=== PATIENT | male | born 1950 | race Caucasian/White ===

== ENCOUNTER 2022-04-30 09:55 | Emergency (ER) | payer MEDICARE, BC ==
[2022-04-30 11:21] LABS: #Eosinphils 0.1 10x3/uL (0.0-0.5); #Monocytes 0.7 10x3/uL (0.0-1.1); #Neutrophils 5.2 10x3/uL (1.5-8.4); %Basophils 0.6 % (0.0-2.0); %Eosinophils 1.1 % (0.0-6.0); %Lymphocytes 15.6 % (18.0-47.0); %Monocytes 9.1 % (0.0-10.0); %Neutrophils 73.3 % (40.0-75.0); Hemoglobin 14.4 g/dL (13.5-17.5); Mean Corpuscular HGB CONC 32.7 g/dL (32.0-36.0); Mean Corpuscular Hemoglobin 30.1 pg (27.0-33.0); Mean Corpuscular Volume 92.1 fl (81.2-95.1); Mean Platelet Volume 10.1 fl (7.4-10.4); Platelet Count 191 10x3/uL (150-450); RBC Distribution Width 13.3 % (11.5-14.5); Red Blood Cell (RBC) Count 4.79 10x6/uL (4.32-5.72); White Blood Cell (WBC) Count 7.1 10x3/uL (3.5-10.5)
[2022-04-30 11:35] LABS: ALT (SGPT) 21 U/L (8-55); AST (SGOT) 22 U/L (5-34); Albumin 4.3 g/dL (3.4-4.8); Alkaline Phosphatase 70 U/L (40-110); Anion Gap 14 mmol/L (10-20); BUN (Urea Nitrogen) 14 mg/dL (8.4-25.7); Bilirubin, Total 0.6 mg/dL (0.2-1.2); CK (CPK) 105 U/L (30-200); Calc. Creatinine Clearance 0 mL/min (70-130); Calcium 9.6 mg/dL (7.8-10.44); Carbon Dioxide 24 mmol/L (23-31); Chloride 107 mmol/L (98-107); Estimated GFR 90; Globulin 2.4 g/dL (2.4-3.5); Glucose 104 mg/dL (83-110); Potassium 4.9 mmol/L (3.5-5.1); Protein, Total 6.7 g/dL (5.8-8.1); Sodium 140 mmol/L (136-145)
== END 2022-04-30 11:56 | disposition home or self-care (01) ==
LOC: CSHERS 09:55
DX: I10 Essential (primary) hypertension (principal)
CPT/HCPCS: 71045; 80053; 82550; 84484; 85025; 86140; 93005

== ENCOUNTER 2023-09-09 08:34 | Outpatient (CLI) | payer MEDICARE, BC | END 2023-09-09 08:35 | disposition home or self-care (01) | LOC: CSHLAB 08:34 | PROVIDERS: ATTEND Family Medicine | DX: R10.13 Epigastric pain (principal); K83.8 Other specified diseases of biliary tract | CPT/HCPCS: 74181; 76377 ==

== ENCOUNTER 2023-12-03 09:19 | Outpatient (CLI) | payer MEDICARE, BC | END 2023-12-03 09:20 | disposition home or self-care (01) | LOC: CSHWCC 09:19 | PROVIDERS: ATTEND Nurse Practitioner Family | DX: I87.313 Chronic venous hypertension (idiopathic) with ulcer of bilateral lower extremity (principal); L97.512 Non-pressure chronic ulcer of other part of right foot with fat layer exposed; L97.522 Non-pressure chronic ulcer of other part of left foot with fat layer exposed; I25.10 Atherosclerotic heart disease of native coronary artery without angina pectoris | CPT/HCPCS: 11042; 11045 ==

== ENCOUNTER 2023-12-17 09:22 | Outpatient (CLI) | payer MEDICARE, BC | END 2023-12-17 09:23 | disposition home or self-care (01) | LOC: CSHWCC 09:22 | PROVIDERS: ATTEND Nurse Practitioner Family | DX: T81.31XD Disruption of external operation (surgical) wound, not elsewhere classified, subsequent encounter (principal); I25.10 Atherosclerotic heart disease of native coronary artery without angina pectoris | CPT/HCPCS: 11042; 99212; G0463 ==

== ENCOUNTER 2023-12-24 08:55 | Outpatient (CLI) | payer MEDICARE, BC | END 2023-12-24 08:56 | disposition home or self-care (01) | LOC: CSHWCC 08:55 | PROVIDERS: ATTEND Nurse Practitioner Family | DX: T81.31XD Disruption of external operation (surgical) wound, not elsewhere classified, subsequent encounter (principal); I25.10 Atherosclerotic heart disease of native coronary artery without angina pectoris | CPT/HCPCS: 11042; G0463; 99212 ==

== ENCOUNTER 2023-12-31 08:53 | Outpatient (CLI) | payer MEDICARE, BC | END 2023-12-31 08:54 | disposition home or self-care (01) | LOC: CSHWCC 08:53 | PROVIDERS: ATTEND Nurse Practitioner Family | DX: T81.31XD Disruption of external operation (surgical) wound, not elsewhere classified, subsequent encounter (principal); I25.10 Atherosclerotic heart disease of native coronary artery without angina pectoris | CPT/HCPCS: 11042; G0463; 99212 ==

== ENCOUNTER 2024-01-07 08:00 | Outpatient (CLI) | payer MEDICARE, BC | END 2024-01-07 08:01 | disposition home or self-care (01) | LOC: CSHWCC 08:00 | PROVIDERS: ATTEND Nurse Practitioner Family | DX: T81.31XD Disruption of external operation (surgical) wound, not elsewhere classified, subsequent encounter (principal); I25.10 Atherosclerotic heart disease of native coronary artery without angina pectoris | CPT/HCPCS: 99212; G0463 ==

== ENCOUNTER 2024-01-21 09:51 | Outpatient (CLI) | payer MEDICARE, BC | END 2024-01-21 09:52 | disposition home or self-care (01) | LOC: CSHWCC 09:51 | PROVIDERS: ATTEND Nurse Practitioner Family | DX: T81.31XD Disruption of external operation (surgical) wound, not elsewhere classified, subsequent encounter (principal); I25.10 Atherosclerotic heart disease of native coronary artery without angina pectoris | CPT/HCPCS: 99212; G0463 ==

== ENCOUNTER 2024-04-08 08:33 | Outpatient (CLI) | payer MEDICARE, BC ==
[2024-04-08] MEDS ORDERED: Magnevist 469MG/ML 20 ML VIAL ONE (11:33)
== END 2024-04-08 08:34 | disposition home or self-care (01) ==
LOC: CSHMRI 08:33
PROVIDERS: ATTEND Internal Medicine Gastroenterology
DX: D13.5 Benign neoplasm of extrahepatic bile ducts (principal); K83.8 Other specified diseases of biliary tract; Z86.0100 Personal history of colon polyps, unspecified; Z98.890 Other specified postprocedural states
CPT/HCPCS: 74183; 76376

== ENCOUNTER 2024-09-14 03:58 | Inpatient (IN) | payer MEDICARE, BC ==
[2024-09-14 04:46] LABS: #Basophils 0.04 10x3/uL (0.0-0.2); #Eosinophils 0.09 10x3/uL (0.0-0.5); #Monocytes 0.78 10x3/uL (0.0-1.1); #Neutrophils 8.11 10x3/uL (1.5-8.4); %Basophils 0.4 % (0.0-2.0); %Eosinophils 0.9 % (0.0-6.0); %Lymphocytes 10.9 % (18.0-47.0); %Monocytes 7.7 % (0.0-10.0); %Neutrophils 79.7 % (40.0-75.0); Hematocrit 27.2 % (38.8-50.0); Hemoglobin 8.6 g/dL (13.5-17.5); Mean Corpuscular Hemoglobin 27.9 pg (27.0-33.0); Mean Corpuscular Volume 88.3 fL (81.2-95.1); Platelet Count 171 10x3/uL (150-450); Red Blood Cell (RBC) Count 3.08 10x6/uL (4.32-5.72); White Blood Cell (WBC) Count 10.17 10x3/uL (3.5-10.5)
[2024-09-14 05:05] LABS: ALT (SGPT) 24 U/L (Less than 45); AST (SGOT) 25 U/L (11-34); Albumin 3.5 g/dL (3.1-4.5); Alkaline Phosphatase 89 U/L (40-110); Anion Gap 13 mmol/L (10-20); BUN (Urea Nitrogen) 47 mg/dL (8.4-25.7); Bilirubin, Total 0.4 mg/dL (0.3-1.2); Calc. Creatinine Clearance 0 mL/min (70-130); Calcium 8.3 mg/dL (7.8-10.44); Carbon Dioxide 20 mmol/L (23-31); Chloride 110 mmol/L (98-107); Globulin 2.3 g/dL (2.4-3.5); Glucose 148 mg/dL (83-110); Potassium 4.4 mmol/L (3.5-5.1); Sodium 139 mmol/L (136-145)
[2024-09-14 05:12] LABS: Troponin I Less than 0.010 ng/mL (< 0.028)
[2024-09-14 05:18] LABS: Glucose, Urine (Dipstick) >=1000 mg/dL (Negative); Leukocyte Negative (Negative); Protein, Urine (Dipstick) 15 mg/dl (Neg-Trace); Specific Gravity, Urine 1.015 (1.005-1.030)
[2024-09-14 05:45] LABS: CAUTI Indications for Culture Alt mental st,lethar; RBC/HPF 0-3 HPF (0-3); WBC/HPF 0-3 HPF (0-3)
[2024-09-14 05:46] LABS: Bacteria/HPF None Seen HPF (None Seen)
[2024-09-14 05:47] LABS: Urine Culture Reflex No No
[2024-09-14] MEDS ORDERED: Pantoprazole 40 MG VIAL ONE (06:47)
[2024-09-14] MEDS ORDERED: Ondansetron PF 4 MG/2 ML Vial IVP PRN (08:27)
[2024-09-14] MEDS ORDERED: Acetaminophen 325 MG TAB PO PRN (08:27)
[2024-09-14] MEDS ORDERED: Melatonin 3 MG TAB PO PRN (08:27)
[2024-09-14] MEDS ORDERED: Electrolyte Replacement Protocol 1 EACH FS PRN (08:30)
[2024-09-14 15:01] LABS: Hemoglobin 8.8 g/dL (13.5-17.5)
[2024-09-14 20:35] LABS: Hemoglobin 9.3 g/dL (13.5-17.5)
[2024-09-14] MEDS: Pantoprazole 40 MG VIAL IVP SCH (22:24)
[2024-09-15 02:27] LABS: Hemoglobin 9.2 g/dL (13.5-17.5)
[2024-09-15 06:25] LABS: #Basophils 0.04 10x3/uL (0.0-0.2); #Eosinophils 0.16 10x3/uL (0.0-0.5); #Monocytes 0.67 10x3/uL (0.0-1.1); #Neutrophils 4.51 10x3/uL (1.5-8.4); %Basophils 0.6 % (0.0-2.0); %Eosinophils 2.6 % (0.0-6.0); %Lymphocytes 13.3 % (18.0-47.0); %Monocytes 10.7 % (0.0-10.0); %Neutrophils 72.3 % (40.0-75.0); Hematocrit 25.8 % (38.8-50.0); Hemoglobin 8.4 g/dL (13.5-17.5); Mean Corpuscular Hemoglobin 28.7 pg (27.0-33.0); Mean Corpuscular Volume 88.1 fL (81.2-95.1); Platelet Count 137 10x3/uL (150-450); Red Blood Cell (RBC) Count 2.93 10x6/uL (4.32-5.72); White Blood Cell (WBC) Count 6.24 10x3/uL (3.5-10.5)
[2024-09-15 06:50] LABS: Anion Gap 12 mmol/L (10-20); BUN (Urea Nitrogen) 24 mg/dL (8.4-25.7); Calc. Creatinine Clearance 108 mL/min (70-130); Calcium 8.0 mg/dL (7.8-10.44); Carbon Dioxide 20 mmol/L (23-31); Chloride 113 mmol/L (98-107); Glucose 110 mg/dL (83-110); Magnesium 1.8 mg/dL (1.6-2.6); Potassium 4.3 mmol/L (3.5-5.1); Sodium 141 mmol/L (136-145)
[2024-09-15] MEDS: Magnesium 2 GM/50 ML(in water) 2 GM in Premix 1 BAG IVPB SCH (08:13)
[2024-09-15 12:09] LABS: Hematocrit 26.5 % (38.8-50.0); Hemoglobin 8.7 g/dL (13.5-17.5)
[2024-09-15 18:06] LABS: Hematocrit 29.1 % (38.8-50.0); Hemoglobin 9.6 g/dL (13.5-17.5)
[2024-09-15] MEDS: GoLYTELY 4,000 ml Bottle PO SCH (18:34)
[2024-09-16 04:40] LABS: #Basophils 0.03 10x3/uL (0.0-0.2); #Eosinophils 0.18 10x3/uL (0.0-0.5); #Monocytes 0.71 10x3/uL (0.0-1.1); #Neutrophils 4.08 10x3/uL (1.5-8.4); %Basophils 0.5 % (0.0-2.0); %Eosinophils 3.0 % (0.0-6.0); %Lymphocytes 15.5 % (18.0-47.0); %Monocytes 12.0 % (0.0-10.0); %Neutrophils 68.7 % (40.0-75.0); Anion Gap 16 mmol/L (10-20); BUN (Urea Nitrogen) 18 mg/dL (8.4-25.7); Calc. Creatinine Clearance 117 mL/min (70-130); Calcium 8.3 mg/dL (7.8-10.44); Carbon Dioxide 22 mmol/L (23-31); Chloride 106 mmol/L (98-107); Glucose 127 mg/dL (83-110); Hematocrit 25.8 % (38.8-50.0); Hemoglobin 8.3 g/dL (13.5-17.5); Mean Corpuscular Hemoglobin 27.9 pg (27.0-33.0); Mean Corpuscular Volume 86.6 fL (81.2-95.1); Potassium 3.5 mmol/L (3.5-5.1); Red Blood Cell (RBC) Count 2.98 10x6/uL (4.32-5.72); Sodium 140 mmol/L (136-145); White Blood Cell (WBC) Count 5.94 10x3/uL (3.5-10.5)
[2024-09-16 04:42] LABS: Platelet Count 140 10x3/uL (150-450)
[2024-09-16] MEDS: Potassium Chloride 20 MEQ in Premix 1 BAG IVPB SCH (08:47)
[2024-09-16] MEDS ORDERED: Potassium Chloride 20 MEQ in Premix 1 BAG IVPB SCH (12:00)
[2024-09-16] MEDS ORDERED: Lidocaine 1% PF 5 ML VIAL ONE (12:23)
[2024-09-16] MEDS ORDERED: PROPOFOL 40 ML ONE (12:23)
[2024-09-16] MEDS: Potassium Bicarbonate/Cit Ac 20 MEQ TAB PO SCH (18:22)
[2024-09-17 06:01] LABS: #Basophils 0.03 10x3/uL (0.0-0.2); #Eosinophils 0.14 10x3/uL (0.0-0.5); #Monocytes 0.67 10x3/uL (0.0-1.1); #Neutrophils 4.57 10x3/uL (1.5-8.4); %Basophils 0.5 % (0.0-2.0); %Eosinophils 2.2 % (0.0-6.0); %Lymphocytes 13.1 % (18.0-47.0); %Monocytes 10.7 % (0.0-10.0); %Neutrophils 73.2 % (40.0-75.0); Hematocrit 28.1 % (38.8-50.0); Hemoglobin 8.8 g/dL (13.5-17.5); Mean Corpuscular Hemoglobin 27.8 pg (27.0-33.0); Mean Corpuscular Volume 88.9 fL (81.2-95.1); Platelet Count 173 10x3/uL (150-450); Red Blood Cell (RBC) Count 3.16 10x6/uL (4.32-5.72); White Blood Cell (WBC) Count 6.25 10x3/uL (3.5-10.5)
[2024-09-17 06:02] VITALS: BMI 32.1
[2024-09-17 06:26] LABS: Anion Gap 13 mmol/L (10-20); BUN (Urea Nitrogen) 10 mg/dL (8.4-25.7); Calc. Creatinine Clearance 116 mL/min (70-130); Calcium 8.5 mg/dL (7.8-10.44); Carbon Dioxide 23 mmol/L (23-31); Chloride 107 mmol/L (98-107); Glucose 124 mg/dL (83-110); Magnesium 1.8 mg/dL (1.6-2.6); Potassium 3.6 mmol/L (3.5-5.1); Sodium 139 mmol/L (136-145)
[2024-09-17 08:51] VITALS: BP 125/71; TEMP 97.2
[2024-09-17] MEDS: Rosuvastatin 20 MG TAB PO SCH (09:06)
[2024-09-17] MEDS: Metoprolol Succinate XL 25 MG ER.TAB PO SCH (09:07)
[2024-09-17] MEDS: CO Q-10 CAPSULE 50 MG PO SCH (09:07)
[2024-09-17] MEDS: Magnesium 2 GM/50 ML(in water) 2 GM in Premix 1 BAG IVPB SCH (09:11)
== END 2024-09-17 12:42 | disposition home or self-care (01) | DRG 378 ==
LOC: CSHERS 03:58 → CSHICU 07:46 → CSHTELE 09-17 04:52
PROVIDERS: ADMIT Internal Medicine; ATTEND Internal Medicine
PROC: 0DJ08ZZ Inspection of Upper Intestinal Tract, Via Natural or Artificial Opening Endoscopic (ICD-10-PCS; principal; 2024-09-16)
PROC: 0DJD8ZZ Inspection of Lower Intestinal Tract, Via Natural or Artificial Opening Endoscopic (ICD-10-PCS; 2024-09-16)
DX: K28.4 Chronic or unspecified gastrojejunal ulcer with hemorrhage (principal); D62 Acute posthemorrhagic anemia; I95.1 Orthostatic hypotension; I25.10 Atherosclerotic heart disease of native coronary artery without angina pectoris; E11.9 Type 2 diabetes mellitus without complications; E78.5 Hyperlipidemia, unspecified; E66.9 Obesity, unspecified; I48.0 Paroxysmal atrial fibrillation; I25.118 Atherosclerotic heart disease of native coronary artery with other forms of angina pectoris; Z79.899 Other long term (current) drug therapy
CPT/HCPCS: 36415; 36430; 71045; 80048; 80053; 81001; 82274; 83735; 84100; 84484; 85018; 85025; 86850; 86900; 86901; 93005; 96361; 96374; J2470; J2704; J3010; J3475; J3480; J7030; P9016